=== PATIENT | female | born 1975 | race Caucasian/White ===

== ENCOUNTER 2017-02-04 19:27 | Emergency (ER) | payer OTHER ==
[2017-02-04] MEDS ORDERED: Ketorolac 30 MG/ML SDV IVPUSH ONE (20:48)
[2017-02-04] MEDS ORDERED: Ondansetron 4 MG/2 ML SDV IVPUSH ONE (20:48)
[2017-02-04] MEDS ORDERED: Sodium Chloride 0.9% 1,000 ML IV ONE (20:48)
--- NOTE | 2017-02-04 22:28 | EDM.PDOC ---
ED HPI GENERAL MEDICAL PROBLEM - General Chief Complaint: Genitourinary Problem Stated Complaint: PT HAS UTI Time Seen by Provider: 02/04/17 22:00 Source of Information: Reports: Patient History Limitations: Reports: No Limitations - History of Present Illness INITIAL COMMENTS - FREE TEXT/NARRATIVE: History of present illness: [41-year-old female comes in with pressure and burning in her bladder. Patient indicates that she feels she is having some nature bladder spasms and suspect she has a UTI.] Review of systems: As per history of present illness and below otherwise all systems reviewed and negative. Past medical history: As per history of present illness and as reviewed below otherwise noncontributory. Surgical history: As per history of present illness and as reviewed below otherwise noncontributory. Social history: No reported history of drug or alcohol abuse. Family history: As per history of present illness and as reviewed below otherwise noncontributory. Physical exam: HEENT: Atraumatic, normocephalic, pupils reactive, negative for conjunctival pallor or scleral icterus, mucous membranes moist, throat clear, neck supple, nontender, trachea midline. Lungs: Clear to auscultation, breath sounds equal bilaterally, chest nontender. Heart: S1S2, regular, negative for clicks, rubs, or JVD. Abdomen: Soft, nondistended, nontender. Negative for masses or hepatosplenomegaly. Negative for costovertebral tenderness. Pelvis: Stable nontender. Genitourinary: Deferred. Rectal: Deferred. Extremities: Atraumatic, negative for cords or calf pain. Neurovascular unremarkable. Neuro: Awake, alert, oriented. Cranial nerves II through XII unremarkable. Cerebellum unremarkable. Motor and sensory unremarkable throughout. Exam nonfocal. UA negative and CT negative Global assessment is benign save the subjective complaint as noted in the history of present illness Diagnostics: [UA, CT of pelvis and abdomen] Therapeutics: [] Impression: [Bladder spasm] Plan: [Follow-up with primary care] Definitive disposition and diagnosis as appropriate pending reevaluation and review of above. Lower Back Pain Score (Numeric/FACES): 3 - Related Data Allergies Allergy/AdvReac Type Severity Reaction Status Date / Time tramadol Allergy Other Verified 02/04/17 19:43 Home Meds: Home Meds buPROPion HCl [Wellbutrin Xl] 300 mg PO DAILY 02/04/17 [History] Past Medical History HEENT History: Reports: None Cardiovascular History: Reports: None Respiratory History: Reports: None Gastrointestinal History: Reports: None Genitourinary History: Reports: UTI, Recurrent Psychiatric History: Reports: Depression Endocrine/Metabolic History: Reports: None - Infectious Disease History Infectious Disease History: Reports: Chicken Pox, Influenza - Past Surgical History HEENT Surgical History: Reports: None Cardiovascular Surgical History: Reports: None GI Surgical History: Reports: None Female Surgical History: Reports: Tubal Ligation Musculoskeletal Surgical History: Reports: Carpal Tunnel Social & Family History - Tobacco Use Smoking Status *Q: Never Smoker ED ROS GENERAL - Review of Systems Review Of Systems: See Below (History of present illness) ED EXAM, GENERAL - Physical Exam Exam: See Below (History of present illness) Course - Vital Signs Last Recorded V/S: Last Vital Signs Temp 36.6 C 02/04/17 19:44 Pulse 74 02/04/17 19:44 Resp 16 02/04/17 19:44 BP 110/68 02/04/17 19:44 Pulse Ox 97 02/04/17 19:44 - Orders/Labs/Meds Orders: Active Orders 24 hr Category Date Time Status Abdomen Pelvis wo Cont [CT] Stat Exams 02/04/17 20:48 Ordered Labs: Laboratory Tests 02/04/17 02/04/17 Range/Units 19:45 19:45 Urine Color YELLOW Urine Appearance CLEAR Urine pH 5.5 (5.0-8.0) Ur Specific [place] <= 1.005 (1.001-1.035) Urine Protein NEGATIVE (NEGATIVE) mg/dL Urine Glucose (UA) NEGATIVE (NEGATIVE) mg/dL Urine Ketones NEGATIVE (NEGATIVE) mg/dL Urine Occult Blood SMALL H (NEGATIVE) Urine Nitrite NEGATIVE (NEGATIVE) Urine Bilirubin NEGATIVE (NEGATIVE) Urine Urobilinogen 0.2 (<2.0) EU/dL Ur Leukocyte Esterase NEGATIVE (NEGATIVE) Urine RBC 0-1 (0-2/HPF) Urine WBC 0-1 (0-5/HPF) Ur Epithelial Cells FEW (NONE-FEW) Urine Bacteria RARE (NEGATIVE) Urine HCG, Qual NEGATIVE (NEGATIVE) Meds: Medications Discontinued Medications Generic Name Dose Route Start Last Admin Trade Name Freq PRN Reason Stop Dose Admin Sodium Chloride 1,000 mls @ 999 mls/hr 02/04/17 20:48 02/04/17 21:05 Normal Saline IV 02/04/17 21:48 999 mls/hr STAT ONE Administration Ketorolac Tromethamine 30 mg 02/04/17 20:48 02/04/17 21:06 Toradol IVPUSH 02/04/17 20:49 30 mg ONETIME ONE Administration Ondansetron HCl 4 mg 02/04/17 20:48 02/04/17 21:05 Zofran IVPUSH 02/04/17 20:49 4 mg ONETIME ONE Administration Departure - Departure Time of Disposition: 22:42 Disposition: Home, Self-Care 01 Condition: Good Clinical Impression: Bladder spasm - Discharge Information Referrals: PCP,None [Primary Care Provider] - Additional Instructions: The following information is given to patients seen in the emergency department who are being discharged to home. This information is to outline your options for follow-up care. We provide all patients seen in our emergency department with a follow-up referral. The need for follow-up, as well as the timing and circumstances, are variable depending upon the specifics of your emergency department visit. If you don't have a primary care physician on staff, we will provide you with a referral. We always advise you to contact your personal physician following an emergency department visit to inform them of the circumstance of the visit and for follow-up with them and/or the need for any referrals to a consulting specialist. The emergency department will also refer you to a specialist when appropriate. This referral assures that you have the opportunity for follow-up care with a specialist. All of these measure are taken in an effort to provide you with optimal care, which includes your follow-up. Under all circumstances we always encourage you to contact your private physician who remains a resource for coordinating your care. When calling for follow-up care, please make the office aware that this follow-up is from your recent emergency room visit. If for any reason you are refused follow-up, please contact the [facility] Emergency Department at and asked to speak to the emergency department charge nurse. Follow-up with primary care provider one to 2 days Return to ED as needed as discussed - My Orders Last 24 Hours: My Active Orders 02/04/17 20:48 Abdomen Pelvis wo Cont [CT] Stat - Assessment/Plan Last 24 Hours: My Active Orders 02/04/17 20:48 Abdomen Pelvis wo Cont [CT] Stat
[2017-02-04 23:18] VITALS: BP 115/78
--- NOTE | 2017-02-05 11:10 | CT ---
EXAM DATE: 02/04/17 PATIENT'S AGE: 41 Patient: BETZAIDA FERGUSON Facility: [place], [place] Site . Site : 1975 Study: CT Abdomen/Pelvis [id number] 10:22:41 PM Ordering Physician: Doctor Palmer Final Report: INDICATION: FLANK PAIN CT ABDOMEN AND PELVIS WITHOUT CONTRAST TECHNIQUE: Multidetector CT imaging was performed through the abdomen and pelvis without intravenous or oral contrast (renal stone CT protocol). Coronal and sagittal reconstructions were generated. COMPARISON: None. FINDINGS: No stones are visualized within the kidneys, ureters, or urinary bladder. There is no ureteral dilation, hydronephrosis, or perinephric/ periureteral stranding to suggest ureteral obstruction. Included portions of the lower chest show the lung bases to be clear. No abnormalities are demonstrated in the unenhanced liver, spleen, gallbladder, pancreas, stomach, and adrenals. Bowel loops are of normal caliber and demonstrate no wall thickening. The appendix is normal. No free fluid or free air is identified. The abdominal aorta appears normal. No abnormally enlarged lymph nodes are seen. The urinary bladder, uterus, and adnexal regions are within normal limits. Visualized bones show no significant findings. IMPRESSION: No acute abnormality identified. No cause for the patient`s symptoms is apparent. LAVON DURON MD [employer] Dictated by: Gene Duron MD @ 02/04/2017 22:30:03 (Electronic Signature) Report Signed by Proxy. JILL
== END 2017-02-04 23:05 | disposition home or self-care (01) ==
LOC: MW.ED 19:27
DX: N32.89 Other specified disorders of bladder (principal); F32.9 Major depressive disorder, single episode, unspecified; Z79.899 Other long term (current) drug therapy; Z88.5 Allergy status to narcotic agent
CPT/HCPCS: 74176; 81001; 81025; 96361; 96374; 96375; 99284; J1885; J2405; J7040; 99282

== ENCOUNTER 2019-08-07 22:54 | Emergency (ER) | payer BC ==
--- NOTE | 2019-08-07 23:10 | EDM.PDOC ---
ED HPI GENERAL MEDICAL PROBLEM - General Chief Complaint: Headache Stated Complaint: HEADACHE Time Seen by Provider: 08/07/19 23:09 Source of Information: Reports: Patient History Limitations: Reports: No Limitations - History of Present Illness INITIAL COMMENTS - FREE TEXT/NARRATIVE: Patient is a 44-year-old female is complaining of having a headache which started approximately 1 PM today. Patient has long history of tension migraines and is currently out of her Flexeril which is the only med that really helps. Patient has been using heat and massage and ibuprofen in the past but these do not seem to help her symptoms. She is feeling nauseous denies any vomiting denies any sinus pressure or dental pain. Patient denies any numbness weakness paresthesias. Pain is worse on the left side of her neck. She has had these going on for extended period of time. Onset: Today Duration: Getting Worse Location: Reports: Head, Neck Quality: Reports: Ache, Dull Severity: Moderate Improves with: Reports: None Worsens with: Reports: Movement Associated Symptoms: Reports: No Other Symptoms Headache Pain Score (Numeric/FACES): 6 - Related Data Allergies Allergy/AdvReac Type Severity Reaction Status Date / Time tramadol Allergy Other Verified 08/07/19 23:07 Home Meds: Home Meds buPROPion HCL [Wellbutrin Xl] 300 mg PO DAILY 02/04/17 [History] Cyclobenzaprine [Flexeril] 0 mg PO ASDIRECTED PRN 08/07/19 [History] Spironolactone [Aldactone] 200 mg PO BID 08/07/19 [History] Past Medical History HEENT History: Reports: None Cardiovascular History: Reports: None Respiratory History: Reports: None Gastrointestinal History: Reports: None Genitourinary History: Reports: UTI, Recurrent Psychiatric History: Reports: Depression Endocrine/Metabolic History: Reports: None - Infectious Disease History Infectious Disease History: Reports: Chicken Pox, Influenza - Past Surgical History HEENT Surgical History: Reports: None Cardiovascular Surgical History: Reports: None GI Surgical History: Reports: None Female Surgical History: Reports: Tubal Ligation Musculoskeletal Surgical History: Reports: Carpal Tunnel ED ROS GENERAL - Review of Systems Review Of Systems: Comprehensive ROS is negative, except as noted in HPI. - Physical Exam Exam: See Below Exam Limited By: No Limitations General Appearance: Alert, No Apparent Distress Head Exam: Atraumatic, Normocephalic Neck: Limited Range of Motion, Other (Positive muscle spasm bilaterally left worse than right.) Respiratory/Chest: No Respiratory Distress Neuro Exam (Abbreviated): Alert, Oriented, CN II-XII Intact Back Exam: Muscle Spasm Extremities: Normal Inspection, Normal Range of Motion Psychiatric: Normal Affect Skin Exam: Warm, Dry Course - Vital Signs Text/Narrative:: Giving patient a Flexeril Insta med prescription. I am recommending she continue with heat and massage as tolerated. Ibuprofen with meals. Follow-up with PCP if symptoms continue return to ER if worse. Last Recorded V/S: Last Vital Signs Temp 36.2 C 08/07/19 23: Pulse 80 08/07/19 23: Resp 12 08/07/19 23: BP 128/78 08/07/19 23: Pulse Ox 96 08/07/19 23:02 Departure - Departure Time of Disposition: 23:37 Disposition: Home, Self-Care 01 Condition: Good Clinical Impression: Tension-type headache - Discharge Information Instructions: Tension Headache, Adult, [id number] Referrals: My Grace DO [Primary Care Provider] - Forms: ED Department Discharge Additional Instructions: Heat and massage as tolerated. Ibuprofen with meals. Follow-up with PCP if not improving. Return to ER if worse. Care Plan Goals: The following information is given to patients seen in the emergency department who are being discharged to home. This information is to outline your options for follow-up care. We provide all patients seen in our emergency department with a follow-up referral. The need for follow-up, as well as the timing and circumstances, are variable depending upon the specifics of your emergency department visit. If you don't have a primary care physician on staff, we will provide you with a referral. We always advise you to contact your personal physician following an emergency department visit to inform them of the circumstance of the visit and for follow-up with them and/or the need for any referrals to a consulting specialist. The emergency department will also refer you to a specialist when appropriate. This referral assures that you have the opportunity for follow-up care with a specialist. All of these measure are taken in an effort to provide you with optimal care, which includes your follow-up. Under all circumstances we always encourage you to contact your private physician who remains a resource for coordinating your care. When calling for follow-up care, please make the office aware that this follow-up is from your recent emergency room visit. If for any reason you are refused follow-up, please contact the [facility] Emergency Department at and asked to speak to the emergency department charge nurse. Sepsis Event Note - Evaluation Sepsis Screening Result: No Definite Risk - Focused Exam Vital Signs: Vital Signs Temp Pulse Resp BP Pulse Ox 08/07/19 23:02 36.2 C 80 12 128/78 96 Date Exam was Performed: 08/07/19 Time Exam was Performed: 23:32
== END 2019-08-07 23:51 | disposition home or self-care (01) ==
LOC: MW.ED 22:54
CPT/HCPCS: 99283

== ENCOUNTER 2020-01-13 21:17 | Emergency (ER) | payer BC, OTHER ==
[2020-01-13] MEDS ORDERED: Ketorolac 30 MG/ML SDV IM ONE (21:36)
[2020-01-13] MEDS ORDERED: Metoclopramide 10 MG/2 ML SDV IM ONE (21:37)
[2020-01-13] MEDS ORDERED: Cyclobenzaprine 10 MG Tab PO ONE (21:37)
--- NOTE | 2020-01-13 21:41 | EDM.PDOC ---
ED HPI GENERAL MEDICAL PROBLEM - General Chief Complaint: Headache Stated Complaint: covic-19 possitive Time Seen by Provider: 01/13/20 21:22 - History of Present Illness INITIAL COMMENTS - FREE TEXT/NARRATIVE: History of present illness: Patient who began to have fatigue and muscle aches 9 days ago was tested positive for COVID-19 on 04 January reports that she continues to have fatigue and muscle ache. She also developed a headache over the last 24 hours. It is similar to her tension migraines but it is in the posterior neck and does not radiate to the shoulders and scalp as usual. No other associated new symptoms. She has no neurologic symptoms other than the headache. Pain makes it better or worse. [] Review of systems: As per history of present illness and below otherwise all systems reviewed and negative. Past medical history: As per history of present illness and as reviewed below otherwise noncontributory. Surgical history: As per history of present illness and as reviewed below otherwise nonc ontributory. Social history: No reported history of drug or alcohol abuse. Family history: As per history of present illness and as reviewed below otherwise noncontributory. Physical exam: Constitutional - well developed, well-nourished and in no acute distress HEENT - normocephalic, no evidence of trauma - external nose and mouth normal - no mass in neck and no JVD - mucosae moist EYES - full EOM, PERRL, no icterus - no evidence of inflammation, injection, or drainage Respiratory - no respiratory distress, equal bilateral expansion, lungs clear to auscultation and no abnormal lung sounds Cardiovascular - Regular Rhythm with S1 and S2 appreciated and no murmur, gallop or rub. GI - abdomen soft without distension or organomegaly - normal bowel sounds - no guard or rebound Musculoskeletal no gross deformity of long bones or joints - no tenderness, swelling or edema Neurologic - Alert and oriented times four - CN II-XII grossly intact - motor sensory and coordination symmetrically normal Psychiatric - appropriate mood and affect with normal thought content Hematologic - No petechiae or purpura - mucosa appropriate color and sclera not pale - normal nail bed color and refill Integument - no rash or evidence of trauma - normal turgor Diagnostics: [] Therapeutics: [] Impression: [] Plan: [] Definitive disposition and diagnosis as appropriate pending reevaluation and review of above. headache Pain Score (Numeric/FACES): 5 - Related Data Allergies Allergy/AdvReac Type Severity Reaction Status Date / Time tramadol Allergy Other Verified 01/13/20 21:34 Home Meds: Home Meds buPROPion HCL [Wellbutrin Xl] 300 mg PO DAILY 02/04/17 [History] Cyclobenzaprine [Flexeril] 0 mg PO ASDIRECTED PRN 08/07/19 [History] Spironolactone [Aldactone] 200 mg PO BID 08/07/19 [History] Cyclobenzaprine [Flexeril] 10 mg PO TID PRN #15 tablet 01/13/20 [Rx] Past Medical History HEENT History: Reports: None Cardiovascular History: Reports: None Respiratory History: Reports: Pneumonia, Recurrent Gastrointestinal History: Reports: None Genitourinary History: Reports: UTI, Recurrent Musculoskeletal History: Reports: Back Pain, Chronic, Neck Pain, Chronic Neurological History: Reports: Migraines Psychiatric History: Reports: Depression Endocrine/Metabolic History: Reports: None - Infectious Disease History Infectious Disease History: Reports: Chicken Pox - Past Surgical History HEENT Surgical History: Reports: None Cardiovascular Surgical History: Reports: None GI Surgical History: Reports: None Female Surgical History: Reports: Tubal Ligation Other Female Surgeries/Procedures: Tummy tuck, breast lift. Musculoskeletal Surgical History: Reports: Carpal Tunnel Social & Family History - Family History Family Medical History: Noncontributory - Tobacco Use Smoking Status *Q: Never Smoker - Caffeine Use Caffeine Use: Reports: None - Recreational Drug Use Recreational Drug Use: No ED ROS GENERAL - Review of Systems Review Of Systems: Comprehensive ROS is negative, except as noted in HPI. ED EXAM, GENERAL - Physical Exam Exam: See Below Course - Vital Signs Text/Narrative:: 2230 the patient feels better discharged in satisfactory condition Last Recorded V/S: Last Vital Signs Temp 96.2 F L 01/13/20 21:31 Pulse 82 01/13/20 21:31 Resp 16 01/13/20 21:31 BP 125/78 01/13/20 21:31 Pulse Ox 97 01/13/20 21:31 - Orders/Labs/Meds Meds: Medications Discontinued Medications Generic Name Dose Route Start Last Admin Trade Name Freq PRN Reason Stop Dose Admin Cyclobenzaprine HCl 10 mg 01/13/20 21:37 01/13/20 22:01 Flexeril PO 01/13/20 21:38 10 mg ONETIME ONE Administration Ketorolac Tromethamine 30 mg 01/13/20 21:36 01/13/20 22:01 Toradol IM 01/13/20 21:37 30 mg ONETIME ONE Administration Metoclopramide HCl 10 mg 01/13/20 21:37 01/13/20 22:00 Reglan IM 01/13/20 21:38 10 mg ONETIME ONE Administration Departure - Departure Time of Disposition: 22:32 Disposition: Home, Self-Care 01 Condition: Good Clinical Impression: Tension-type headache - Discharge Information Prescriptions: Cyclobenzaprine [Flexeril] 10 mg PO TID PRN #15 tablet PRN Reason: Headache Instructions: General Headache Without Cause, [id number] Referrals: PCP,None [Primary Care Provider] - Forms: ED Department Discharge Additional Instructions: [facility] - Primary Care [address] [place] [address] [place] [address] The following information is given to patients seen in the emergency department who are being discharged to home. This information is to outline your options for follow-up care. We provide all patients seen in our emergency department with a follow-up referral. The need for follow-up, as well as the timing and circumstances, are variable depending upon the specifics of your emergency department visit. If you don't have a primary care physician on staff, we will provide you with a referral. We always advise you to contact your personal physician following an emergency department visit to inform them of the circumstance of the visit and for follow-up with them and/or the need for any referrals to a consulting specialist. The emergency department will also refer you to a specialist when appropriate. This referral assures that you have the opportunity for follow-up care with a specialist. All of these measure are taken in an effort to provide you with optimal care, which includes your follow-up. Under all circumstances we always encourage you to contact your private physician who remains a resource for coordinating your care. When calling for follow-up care, please make the office aware that this follow-up is from your recent emergency room visit. If for any reason you are refused follow-up, please contact the [facility] Emergency Department at and asked to speak to the emergency department charge nurse. Sepsis Event Note (ED) - Evaluation Sepsis Screening Result: No Definite Risk - Focused Exam Vital Signs: Vital Signs Temp Pulse Resp BP Pulse Ox 01/13/20 21:31 96.2 F L 82 16 125/78 97
[2020-01-14 00:59] VITALS: BP 89/54; PULSE 86
== END 2020-01-13 22:47 | disposition home or self-care (01) ==
LOC: MW.ED 21:17
DX: G44.209 Tension-type headache, unspecified, not intractable (principal); F32.9 Major depressive disorder, single episode, unspecified; Z79.899 Other long term (current) drug therapy; Z88.5 Allergy status to narcotic agent
CPT/HCPCS: 96372; 99283; A9270; J1885; J2765

== ENCOUNTER 2022-05-16 09:44 | Emergency (ER) | payer BC ==
[2022-05-16 10:11] VITALS: BP 102/69; PULSE 90
[2022-05-16] MEDS ORDERED: Sodium Chloride 0.9% 1,000 ML IV STA (10:23)
[2022-05-16 11:09] LABS: CARBON DIOXIDE,CO2 28.3 mmol/L (21.0-32.0)
[2022-05-16 11:29] LABS: CORONAVIRUS COVID-19 NAA NEGATIVE (NEGATIVE); INFLUENZA A NAA NEGATIVE (NEGATIVE); INFLUENZA B NAA NEGATIVE (NEGATIVE)
== END 2022-05-16 12:39 | disposition home or self-care (01) ==
LOC: MW.ED 09:44
DX: R10.12 Left upper quadrant pain (principal); R12 Heartburn; Z87.19 Personal history of other diseases of the digestive system; Z88.5 Allergy status to narcotic agent; Z20.822 Contact with and (suspected) exposure to COVID-19
CPT/HCPCS: 0240U; 36415; 80053; 81001; 83690; 83735; 85025; 93005; 96360; 99284; J7030; 93010

== ENCOUNTER 2023-11-04 09:46 | Day surgery (SDC) | payer BC ==
[~2023-11-04 09:46] MED LIST: Sodium Chloride 0.9% 10 ML Syringe FLUSH PRN; Sodium Chloride 0.9% 2.5 ML Syringe FLUSH PRN; Sodium Chloride 0.9% 20 ML SDV IV PRN
[2023-11-04] MEDS: Lactated Ringers 1,000 ML IV SCH (11:13)
[2023-11-04] MEDS ORDERED: propofoL 50 ML ONE (11:38)
[2023-11-04] MEDS ORDERED: dexmedeTOMIDine HCl 200 MCG/2 ML SDV ONE (11:58)
[2023-11-04] MEDS ORDERED: Water For Injection, Sterile 20 ML ONE (11:58)
[2023-11-04] MEDS ORDERED: ePHEDrine 50 MG/ML SDV ONE (12:31)
[2023-11-04 13:57] VITALS: BP 112/60; PULSE 72
== END 2023-11-04 13:25 | disposition home or self-care (01) ==
LOC: MW.SDS 09:46
PROVIDERS: ATTEND Surgery
DX: Z12.11 Encounter for screening for malignant neoplasm of colon (principal); K31.7 Polyp of stomach and duodenum; F41.8 Other specified anxiety disorders; K21.9 Gastro-esophageal reflux disease without esophagitis; K22.70 Barrett's esophagus without dysplasia; E78.00 Pure hypercholesterolemia, unspecified; E66.9 Obesity, unspecified; Z68.33 Body mass index [BMI] 33.0-33.9, adult; Z79.899 Other long term (current) drug therapy; Z88.8 Allergy status to other drugs, medicaments and biological substances
CPT/HCPCS: 43239; 45378; 81025; J2704; J7120; 00813; J3490